=== PATIENT | female | born 1965 | race African-American/Black ===

== ENCOUNTER → 2018-02-07 | Outpatient (CLI) | payer OTHER ==
--- NOTE | 2018-02-20 13:25 | RAD ---
DATE: 02/07/2018 10:30 AM EXAM: MAMMO EUGENE SCREENING BILATERAL HISTORY: routine screening evaluation. COMPARISON: None available Bilateral CC and MLO views of the breasts were performed. Bilateral breast tomosynthesis was performed in CC and MLO projections. This study was interpreted with the benefit of Computerized Aided Detection (CAD ). Breast Density: The breast parenchyma is dense, which could reduce the sensitivity of mammography. Breast parenchyma level density D. FINDINGS: Benign calcifications are present. A small nodular mass is seen in the lateral right breast approximately 9 cm posterior to the nipple, better seen on the tomographic symphysis images. An architectural distortion is seen only on the right CC tomographic view. No suspicious masses, microcalcifications or architectural distortion is present to suggest malignancy in the left breast. The visualized axillae are unremarkable. IMPRESSION: Right breast mass and architectural distortion, findings for which additional imaging is advised. BI-RADS CATEGORY: 0 INCOMPLETE: NEEDS ADDITIONAL IMAGING EVALUATION AND/OR PRIOR MAMMOGRAMS FOR COMPARISON. RECOMMENDED FOLLOW-UP: ADD ADDITIONAL IMAGING The patient will be contacted to return for additional imaging and a supplemental report will follow. Spot compression CC and MLO views can be obtained using 3-D technique if possible and also likely ultrasound. PQRS compliance statement: Patient information was entered into a reminder system with a target due date -immediate recall for the next breast imaging. Mammography is a sensitive method for finding small breast cancers, but it does not detect them all and is not a substitute for careful clinical examination. A negative mammogram does not negate a clinically suspicious finding and should not result in delay in biopsying a clinically suspicious abnormality. "Our facility is accredited by the [employer] Mammography [employer]." VINODD
== END | disposition home or self-care (01) ==
LOC: MAMMO 08:26
PROVIDERS: ATTEND Family Medicine
DX: Z12.31 Encounter for screening mammogram for malignant neoplasm of breast (principal)
CPT/HCPCS: 77063; 77067

== ENCOUNTER → 2018-03-23 | Outpatient (CLI) | payer OTHER ==
--- NOTE | 2018-03-24 14:59 | RAD ---
DATE: 03/23/2018 EXAM: DIGITAL DIAGNOSTIC RT, BREAST RIGHT HISTORY: Incomplete mammogram. COMPARISON: Mammogram from 02/07/2018 This study was interpreted with the benefit of Computerized Aided Detection (CAD ). FINDINGS: Spot compression right CC and MLO views were obtained. Spot compression was performed in the outer right breast at mid to posterior depth as well as in the slightly upper right breast. There is a focal asymmetry identified measuring 7 mm, approximately 7-8 cm from the breast in the outer slightly inner right breast. This finding is less conspicuous on spot compression and may represent overlapping fibroglandular tissue. Previously seen focal asymmetry in the outer right breast at posterior depth, 10-11 cm from the nipple, is not definitively seen and may represents a mesh artifact from overlapping fibroglandular tissue. Sonographic evaluation of the right breast was performed at 7 and 8:00 position , 7 cm from the nipple, 7 and 8:00 position 8 cm of the nipple and 8:00 position , 10 cm from the nipple. Within this region, there is no suspicious mass or area of architectural distortion by ultrasound. No sonographic correlates to mammographic findings are identified. The finding in the outer right breast at posterior depth, 10 cm from the nipple most favors overlapping fibroglandular tissue. Finding, 7 cm from the nipple in the outer breast is probably benign, however a three-month follow-up mammogram is recommended to assess stability. IMPRESSION: 1. Focal asymmetry is identified in the outer right breast and is probably benign without sonographic correlate. A 3 month follow-up mammogram is recommended. 2. There is no residual asymmetry in the upper-outer right breast at posterior depth, 10 cm from the nipple, upon spot compression. No sonographic correlate is identified and findings most favor overlapping fibroglandular tissue. BI-RADS CATEGORY: RECOMMENDED FOLLOW-UP: 3M 3 MONTH FOLLOW-UP PQRS compliance statement: Mammography is a sensitive method for finding small breast cancers, but it does not detect them all and is not a substitute for careful clinical examination. A negative mammogram does not negate a clinically suspicious finding and should not result in delay in biopsying a clinically suspicious abnormality. "Our facility is accredited by the [employer] Mammography [employer]." VINODD
== END | disposition home or self-care (01) ==
LOC: MAMMO 09:06
PROVIDERS: ATTEND Family Medicine
DX: R92.8 Other abnormal and inconclusive findings on diagnostic imaging of breast (principal)
CPT/HCPCS: 76641; 77065

== ENCOUNTER → 2018-06-26 | Outpatient (CLI) | payer OTHER ==
--- NOTE | 2018-06-26 13:06 | RAD ---
DATE: 06/26/2018 EXAM: DIGITAL DIAGNOSTIC RT HISTORY: Abnormal mammogram. Follow-up. COMPARISON: 03/23/2018 right lateral diagnostic mammogram This study was interpreted with the benefit of Computerized Aided Detection (CAD). Breast Density: HETERO The breast parenchyma is heterogenously dense, which could reduce sensitivity of mammography. Breast parenchyma level C. FINDINGS: Parenchymal distribution is similar to the prior exam. No suspicious finding on spot compression imaging of the right upper breast posteriorly in the MLO projection on the right outer breast in the CC projection. No suspicious mass or distortion. IMPRESSION: Stable BI-RADS CATEGORY: 1 NEGATIVE RECOMMENDED FOLLOW-UP: 12M 12 MONTH FOLLOW-UP PQRS compliance statement: Patient information was entered into a reminder system with a target due date in one year for the next mammogram. Mammography is a sensitive method for finding small breast cancers, but it does not detect them all and is not a substitute for careful clinical examination. A negative mammogram does not negate a clinically suspicious finding and should not result in delay in biopsying a clinically suspicious abnormality. "Our facility is accredited by the [employer] Mammography [employer]."
== END | disposition home or self-care (01) ==
LOC: MAMMO 12:07
PROVIDERS: ATTEND Family Medicine
DX: R92.8 Other abnormal and inconclusive findings on diagnostic imaging of breast (principal)
CPT/HCPCS: 77065

== ENCOUNTER → 2018-11-12 | Outpatient (CLI) | payer OTHER ==
--- NOTE | 2018-11-12 16:28 | RAD ---
CLINICAL HISTORY: Right leg COMPARISON: None available. TECHNIQUE: Ultrasound evaluation of the right lower extremity was performed from the groin to the upper calf with gutierrez scale, spectral and color doppler evaluation. FINDINGS: The right common femoral vein, and femoral vein, including the saphenous-femoral junction are normal in appearance. Color and spectral Doppler evaluation demonstrates normal spontaneous flow, augmentation and phasicity. The right popliteal vein and visualized calf veins also demonstrate normal compressibility and flow. IMPRESSION: No evidence for right lower extremity DVT. Electronically signed by: Ld Espinal MD (11/12/2018 4:25 PM) [facility]
== END | disposition home or self-care (01) ==
LOC: US 15:31
PROVIDERS: ATTEND Nurse Practitioner Family
DX: M79.604 Pain in right leg (principal)
CPT/HCPCS: 93971

== ENCOUNTER → 2019-01-13 | Outpatient (CLI) | payer OTHER ==
--- NOTE | 2019-01-13 16:33 | RAD ---
MR#: [id number] Date of Study: 01/13/2019 Ordering Physician: MARIAN ARCE, Referring Physician: MARIAN ARCE, Tech: Schuyler Lopez MBA, RDMS, RVT, RDCS, RTR APPROVED REPORT Patient Location: OUT-PATIENT Indications Rest Pain:Bilaterally VELOCITY AND DOPPLER WAVEFORM ANALYSIS RIGHT cm/secWaveformSeverity LEFT cm/secWaveform Severity dCFA 138.0TriphasicdCFA 109.0Triphasic Prof Fem Art. 78.0TriphasicProf Fem Art. 68.0Biphasic Fem Art Prox. 155.0TriphasicFem Art Prox. 130.0Triphasic Fem Art Mid. 126.0TriphasicFem Art Mid. 134.0Triphasic Fem Art Dist. 135.0TriphasicFem Art Dist. 114.0Triphasic Pop Art(Fossa) 82.0TriphasicPop Art([place]) 58.0Triphasic HABILITATION TRAINING SPECIALIST Prox. 69.0TriphasicPTA Prox. 77.0Biphasic HABILITATION TRAINING SPECIALIST Dist. 56.0TriphasicPTA Dist. 104.0Biphasic Per Art Mid. 62.0BiphasicPer Art Mid. 63.0Triphasic NAINA Prox. 77.0TriphasicATA Prox. 73.0Biphasic DPA 84BiphasicDPA 81Biphasic Findings Grayscale images of the bilateral lower extremity arterial vessels demonstrates mild diffuse intimal hyperplasia and minimal plaque. Spectral waveforms and color Doppler are within normal limits throughout the lower 70 arterial course . No significant velocity acceleration is noted. Overall no critical stenosis is identified with thre e-vessel runoff below the knee. Critical Notification Critical Value: No <Conclusion> 1. No significant lower extremity arterial disease bilaterally. Signed by : Sebastien Payne, Electronically Approved : 01/13/2019 13:20:48
--- NOTE | 2019-01-13 16:33 | CARD ---
MR#: [id number] Date of Study: 01/13/2019 Ordering Physician: MARIAN ARCE, Referring Physician: MARIAN ARCE, Tech: Marisela Pompa APPROVED REPORT EXAM: Two-dimensional and M-mode echocardiogram with Doppler and color Doppler. Other Information Quality : AverageHR: 75bpm INDICATION Leg Pain RISK FACTORS Hypertension 2D DIMENSIONS RVDd2.6 (2.9-3.5cm)Left Atrium(2D)3.0 (1.6-4.0cm) IVSd1.0 (0.7-1.1cm)Aortic Root(2D)3.2 (2.0-3.7cm) LVDd4.8 (3.9-5.9cm)LVOT Diameter2.2 (1.8-2.4cm) PWd1.0 (0.7-1.1cm)LVDs2.7 (2.5-4.0cm) FS (%) 43.3 %SV78.4 ml Aortic Valve AoV Peak Tristin.142.1cm/sAoV VTI29.0cm AO Peak GR.8.1mmHgLVOT Peak Tristin.107.3cm/s LVOT VTI 22.59cmAO Mean GR.4mmHg BERNARDINO (VMAX)2.37ce2GSQ (VTI)2.99cm2 Mitral Valve MV E Syjorjte79.6cm/sMV DECEL [id number] MV A Aehduslv52.7cm/sMV YZQ45ik E/A Ratio1.2MVA (PHT)3.28cm2 TDI E/Lateral E'7.9E/Medial E'7.9 Pulmonary Valve PV Peak Ynrlxfiq72.7cm/sPV Peak Grad.3mmHg Tricuspid Valve TR P. Cetirjqh591dn/sRAP [id number] TR Peak Gr.61emScSKGH17bsTn Pulmonary Vein S1 Dthlkzqm16.8cm/sD2 Hjdnttie55.0cm/s PVa [id number] LEFT VENTRICLE The left ventricle is normal size. There is borderline concentric left ventricular hypertrophy. The l eft ventricular systolic function is normal and the ejection fraction is within normal range. The Eje ction Fraction is 55-60%. There is normal LV segmental wall motion. Transmitral Doppler flow pattern is Grade II-pseudonormal filling dynamics. RIGHT VENTRICLE The right ventricle is normal size. There is normal right ventricular wall thickness. The right ventr icular systolic function is normal. ATRIA The left atrium size is normal. The right atrium size is normal. The interatrial septum is intact wit h no evidence for an atrial septal defect or patent foramen ovale as noted on 2-D or Doppler imaging. AORTIC VALVE The aortic valve is thickened but opens well. Doppler and Color Flow revealed trace aortic regurgitat ion. There is no significant aortic valvular stenosis. MITRAL VALVE The mitral valve is normal in structure and function. There is no evidence of mitral valve prolapse. There is no mitral valve stenosis. Doppler and Color-flow revealed trace mitral regurgitation. TRICUSPID VALVE The tricuspid valve is normal in structure and function. Doppler and Color Flow revealed trace tricus pid regurgitation with an estimated PAP 35 mmHg. There is no tricuspid valve stenosis. PULMONIC VALVE The pulmonic valve is not well visualized. Doppler and Color Flow revealed trace pulmonic valvular re gurgitation. GREAT VESSELS The aortic root is normal in size. The IVC is normal in size and collapses >50% with inspiration. PERICARDIAL EFFUSION There is no evidence of significant pericardial effusion. Critical Notification Critical Value: No <Conclusion> The left ventricle is normal size. The left ventricular systolic function is normal and the ejection fraction is within normal range. The Ejection Fraction is 55-60%. There is borderline concentric left ventricular hypertrophy. There is no significant aortic valvular stenosis. Doppler and Color Flow revealed trace aortic regurgitation. Doppler and Color-flow revealed trace mitral regurgitation. Doppler and Color Flow revealed trace tricuspid regurgitation with an estimated PAP 35 mmHg. Signed by : Pete Fritz MD Electronically Approved : 01/13/2019 13:02:36
== END | disposition home or self-care (01) ==
LOC: ECHO 10:31
PROVIDERS: ATTEND Internal Medicine Cardiovascular Disease
DX: I51.7 Cardiomegaly (principal); I77.3 Arterial fibromuscular dysplasia; I70.203 Unspecified atherosclerosis of native arteries of extremities, bilateral legs
CPT/HCPCS: 93306; 93925